=== PATIENT | male | born 2000 | race Caucasian/White ===

== ENCOUNTER 2022-04-03 12:46 | Emergency (ER) | payer SELFPAY ==
[~2022-04-03] VITALS: Ht 182.9 cm; Wt 82.0 kg
[2022-04-03] MEDS ORDERED: ONDANSETRON HCL 4MG/2ML INJ IV STA (14:38)
[2022-04-03] MEDS ORDERED: MORPHINE SULFATE 4 MG/ML CPJ (NOT FOR IM USE) IV STA (14:38)
[2022-04-03 15:33] VITALS: BP 130/88
[2022-04-03] MEDS ORDERED: T3 PO (16:51)
[2022-04-03] MEDS ORDERED: IBUP-2029 MT (16:51)
== END 2022-04-03 18:11 | disposition home or self-care (01) ==
LOC: ER 12:46
DX: S43.014A Anterior dislocation of right humerus, initial encounter (principal); S42.291A Other displaced fracture of upper end of right humerus, initial encounter for closed fracture; X58.XXXA Exposure to other specified factors, initial encounter; Y93.89 Activity, other specified; Y92.9 Unspecified place or not applicable
CPT/HCPCS: 73030; 96374; 96375; 99284; J2270; J2405